=== PATIENT | female | born 1960 | race Native Hawaiian/Other Pacific Islander ===

== ENCOUNTER 2018-07-15 09:10 | Outpatient (CLI) | payer OTHER | END 2018-07-15 20:13 | disposition home or self-care (01) | LOC: MAMMO 09:10 | DX: Z12.31 Encounter for screening mammogram for malignant neoplasm of breast (principal) ==

== ENCOUNTER 2019-07-28 10:07 | Outpatient (CLI) | payer OTHER | END 2019-07-28 21:52 | disposition home or self-care (01) | LOC: MAMMO 10:07 | DX: Z12.31 Encounter for screening mammogram for malignant neoplasm of breast (principal) ==